=== PATIENT | male | born 1980 | race Caucasian/White ===

== ENCOUNTER 2020-09-06 18:26 | Emergency (ER) | payer SELFPAY ==
[2020-09-06] MEDS ORDERED: Sodium Chloride 0.9% 1,000 ML ONE (18:51)
[2020-09-06 19:13] LABS: #Basophils 0.1 thou/uL (0.0-0.2); #Eosinphils 0.1 thou/uL (0.0-0.7); #Lymphocytes 1.4 thou/uL (1.20-3.40); #Monocytes 0.7 thou/uL (0.11-0.59); #Neutrophils 4.2 thou/uL (1.40-6.50); %Basophils 1.3 % (0.0-1.0); %Monocytes 10.9 % (0.0-10.0); %Neutrophils 63.8 % (42.0-75.0); Hemoglobin 16.2 g/dL (14.0-18.0); Mean Corpuscular HGB CONC 31.3 g/dL (32.0-36.0); Mean Corpuscular Hemoglobin 28.9 pg (27.0-31.0); Mean Corpuscular Volume 92.3 fL (78.0-98.0); Mean Platelet Volume 7.3 fL (7.4-10.4); Platelet Count 337 thou/uL (130-400); RBC Distribution Width 12.1 % (11.5-14.5); Red Blood Cell (RBC) Count 5.62 mill/uL (4.70-6.10); White Blood Cell (WBC) Count 6.5 thou/uL (4.8-10.8)
[2020-09-06 19:32] LABS: Anion Gap 13 mmol/L (10-20); BUN (Urea Nitrogen) 12 mg/dL (8.9-20.6); Calc. Creatinine Clearance 0 mL/min (70-130); Carbon Dioxide 24 mmol/L (22-29); Chloride 104 mmol/L (98-107); Potassium 3.2 mmol/L (3.5-5.1); Sodium 138 mmol/L (136-145)
[2020-09-06 19:33] LABS: ALT (SGPT) 20 U/L (8-55); AST (SGOT) 24 U/L (5-34); Alkaline Phosphatase 58 U/L (40-110); Bilirubin, Total 0.4 mg/dL (0.2-1.2); Calcium 8.4 mg/dL (7.8-10.44); Globulin 2.7 g/dL (2.4-3.5); Glucose 126 mg/dL (70-105); Protein, Total 6.7 g/dL (6.0-8.3)
[2020-09-06] MEDS ORDERED: Potassium Chloride 20 MEQ TAB ONE (20:09)
== END 2020-09-06 20:44 | disposition home or self-care (01) ==
LOC: MADERS 18:26
DX: K92.1 Melena (principal); E87.6 Hypokalemia; F17.210 Nicotine dependence, cigarettes, uncomplicated
CPT/HCPCS: 80053; 85025; 99284; J7050

== ENCOUNTER 2020-10-10 13:00 | Emergency (ER) | payer OTHER, SELFPAY ==
[2020-10-10] MEDS ORDERED: Sulfameth/Trimethoprim DS 800-160mg TAB ONE (15:59)
[2020-10-10] MEDS ORDERED: Boostrix 0.5 ML (Tdap) VIAL ONE (15:59)
== END 2020-10-10 16:33 | disposition home or self-care (01) ==
LOC: MADERS 13:00
DX: S80.212A Abrasion, left knee, initial encounter (principal); S80.211A Abrasion, right knee, initial encounter; L03.116 Cellulitis of left lower limb; F17.210 Nicotine dependence, cigarettes, uncomplicated; V29.9XXA Motorcycle rider (driver) (passenger) injured in unspecified traffic accident, initial encounter
CPT/HCPCS: 90471; 90715

== ENCOUNTER 2021-05-26 10:02 | Emergency (ER) | payer OTHER ==
[2021-05-26] MEDS ORDERED: Ibuprofen 800 MG TAB ONE (11:07)
[2021-05-26] MEDS ORDERED: Acetaminophen 500 MG TAB ONE (11:07)
== END 2021-05-26 11:15 | disposition home or self-care (01) ==
LOC: MADERS 10:02
DX: S93.602A Unspecified sprain of left foot, initial encounter (principal); X50.9XXA Other and unspecified overexertion or strenuous movements or postures, initial encounter; F17.210 Nicotine dependence, cigarettes, uncomplicated

== ENCOUNTER 2021-12-21 21:42 | Emergency (ER) | payer OTHER, SELFPAY ==
[2021-12-21] MEDS ORDERED: Lidocaine 1%/Epinephrine 1:100K 10 ML VIAL ONE (22:29)
[2021-12-22] MEDS ORDERED: Bacitracin 1 PK ONE (00:01)
[2021-12-22] MEDS ORDERED: Doxycycline 100 MG CAP ONE (00:29)
== END 2021-12-22 00:30 | disposition home or self-care (01) ==
LOC: MADERS 21:42
DX: S51.852A Open bite of left forearm, initial encounter (principal); S51.851A Open bite of right forearm, initial encounter; I25.2 Old myocardial infarction; I48.91 Unspecified atrial fibrillation; F17.210 Nicotine dependence, cigarettes, uncomplicated; W54.0XXA Bitten by dog, initial encounter; Z95.0 Presence of cardiac pacemaker

== ENCOUNTER 2022-12-13 23:17 | Emergency (ER) | payer SELFPAY ==
[2022-12-13 23:40] LABS: Band 1 % (5-11); Hematocrit 45.6 % (42.0-52.0); Hemoglobin 15.7 g/dL (14.0-18.0); Lymphocytes 38 % (21-51); MDiff Complete? YES; Mean Corpuscular HGB CONC 34.4 g/dL (32.0-36.0); Mean Corpuscular Hemoglobin 30.7 pg (27.0-31.0); Mean Corpuscular Volume 89.2 fl (78.0-98.0); Mean Platelet Volume 7.2 fL (7.4-10.4); Monocytes 5 % (0-10); Neutrophil 56 % (42-75); Platelet Count 328 10x3/uL (130-400); Red Blood Cell (RBC) Count 5.11 mill/uL (4.70-6.10); White Blood Cell (WBC) Count 6.9 10x3/uL (4.8-10.8)
[2022-12-13 23:46] LABS: ALT (SGPT) 24 U/L (8-55); AST (SGOT) 27 U/L (5-34); Albumin 4.4 g/dL (3.5-5.0); Alkaline Phosphatase 67 U/L (40-110); Anion Gap 23 mmol/L (10-20); BUN (Urea Nitrogen) 12 mg/dL (8.9-20.6); Bilirubin, Total 0.4 mg/dL (0.2-1.2); Calc. Creatinine Clearance 0 mL/min (70-130); Calcium 9.8 mg/dL (7.8-10.44); Carbon Dioxide 21 mmol/L (22-29); Chloride 102 mmol/L (98-107); Estimated GFR 63; Globulin 2.6 g/dL (2.4-3.5); Glucose 108 mg/dL (70-105); Potassium 3.7 mmol/L (3.5-5.1); Sodium 142 mmol/L (136-145)
[2022-12-13 23:47] LABS: Troponin I 0.019 ng/mL (< 0.028)
[2022-12-13] MEDS ORDERED: Nitroglycerin 0.4 MG TAB 1 EACH ONE (23:48)
[2022-12-13] MEDS ORDERED: Aspirin Chewable 81 MG TAB ONE (23:48)
[2022-12-14 00:10] LABS: Acetaminophen Less than 10 mcg/mL (10.0-30.0); Alcohol 71.2 mg/dL (Less than 10); Salicylate Less than 8.0 mg/dL (15.0-30.0)
[2022-12-14] MEDS ORDERED: Thiamine HCl 200 MG/2 ML VIAL ONE (00:12)
[2022-12-14] MEDS ORDERED: Lactated Ringer's 1,000 ML ONE ×2 (00:12→02:31)
[2022-12-14 02:39] LABS: Troponin I Less than 0.010 ng/mL (< 0.028)
[2022-12-14 05:30] LABS: Amphetamine Detected (NotDetected); Barbiturates Screen Not Detected (NotDetected); Benzodiazepine Screen Not Detected (NotDetected); Cocaine Metabolite Screen Not Detected (NotDetected); Methadone Not Detected (NotDetected); Methamphetamine Detected (NotDetected); Opiate Screen Not Detected (NotDetected); Oxycodone Screen Not Detected (NotDetected); Phencyclidine (PCP) Not Detected (NotDetected); THC/Cannabinoid Screen Not Detected (NotDetected); Tricyclic Screen Not Detected (NotDetected)
[2022-12-14 05:40] LABS: Troponin I 0.016 ng/mL (< 0.028)
[2022-12-14] MEDS ORDERED: Aspirin Chewable 81 MG TAB ONE (10:55)
== END 2022-12-14 11:40 | disposition short-term general hospital (02) ==
LOC: MADERS 23:17
DX: R07.9 Chest pain, unspecified (principal); N17.9 Acute kidney failure, unspecified; R55 Syncope and collapse; F17.210 Nicotine dependence, cigarettes, uncomplicated
CPT/HCPCS: 71045; 80053; 80306; 80307; 83690; 83880; 84484; 85025; 85379; 93005; 94760; 96361; 96374; J3411; J7120

== ENCOUNTER 2024-04-12 08:53 | Emergency (ER) | payer OTHER, SELFPAY ==
[2024-04-12 09:26] LABS: #Basophils 0.1 thou/uL (0.0-0.2); #Eosinophils 0.2 thou/uL (0.0-0.7); #Lymphocytes 1.8 thou/uL (1.20-3.40); #Monocytes 0.5 thou/uL (0.11-0.59); #Neutrophils 3.9 thou/uL (1.40-6.50); %Basophils 1.5 % (0.0-1.0); %Eosinophils 2.7 % (0.0-10.0); %Lymphocytes 27.6 % (21.0-51.0); %Monocytes 7.7 % (0.0-10.0); %Neutrophils 60.6 % (42.0-75.0); Hematocrit 41.4 % (42.0-52.0); Hemoglobin 13.8 g/dL (14.0-18.0); Mean Corpuscular HGB CONC 33.3 g/dL (32.0-36.0); Mean Corpuscular Hemoglobin 29.9 pg (27.0-31.0); Mean Corpuscular Volume 89.7 fl (78.0-98.0); Mean Platelet Volume 6.4 fL (7.4-10.4); Platelet Count 294 10x3/uL (130-400); RBC Distribution Width 11.9 % (11.5-14.5); Red Blood Cell (RBC) Count 4.62 mill/uL (4.70-6.10); White Blood Cell (WBC) Count 6.4 10x3/uL (4.8-10.8)
[2024-04-12 09:40] LABS: ALT (SGPT) 18 U/L (8-55); AST (SGOT) 20 U/L (5-34); Albumin 3.7 g/dL (3.5-5.0); Alkaline Phosphatase 53 U/L (40-110); Anion Gap 13 mmol/L (10-20); BUN (Urea Nitrogen) 12 mg/dL (8.9-20.6); Bilirubin, Total 0.4 mg/dL (0.2-1.2); Calc. Creatinine Clearance 0 mL/min (70-130); Calcium 8.7 mg/dL (7.8-10.44); Carbon Dioxide 21 mmol/L (22-29); Chloride 108 mmol/L (98-107); Estimated GFR 110; Globulin 2.4 g/dL (2.4-3.5); Glucose 90 mg/dL (70-105); Lipase 56 U/L (8-78); Potassium 3.8 mmol/L (3.5-5.1); Protein, Total 6.1 g/dL (6.0-8.3); Sodium 138 mmol/L (136-145); Troponin I Less than 0.010 ng/mL (< 0.028)
[2024-04-12 09:41] LABS: Acetaminophen Less than 10 mcg/mL (Less than 10); Alcohol Less than 10.0 mg/dL (Less than 10); Salicylate Less than 8.0 mg/dL (Less than 8.0)
[2024-04-12 12:30] LABS: Troponin I Less than 0.010 ng/mL (< 0.028)
[2024-04-12 12:31] LABS: Bilirubin Negative (Negative); Blood, Urine Negative (Negative); Clarity Clear (Clear); Glucose, Urine (Dipstick) Negative (Negative); Ketone, Urine Negative (Negative); Leukocyte Negative (Negative); Nitrite Negative (Negative); Protein, Urine (Dipstick) Negative (Neg-Trace); Specific Gravity, Urine 1.015 (1.005-1.030); Urobilinogen 0.2 mg/dL (Less than 2)
[2024-04-12 12:37] LABS: CAUTI Indications for Culture Dysuria,urgency,freq; RBC/HPF 0-3 HPF (0-3); Squamous Epithelial 0-3 HPF (0-3); WBC/HPF 0-3 HPF (0-3)
[2024-04-12 12:38] LABS: Amphetamine Detected (NotDetected); Bacteria/HPF Rare-Few HPF (None Seen); Barbiturates Screen Not Detected (NotDetected); Benzodiazepine Screen Not Detected (NotDetected); Cocaine Metabolite Screen Not Detected (NotDetected); Methadone Not Detected (NotDetected); Methamphetamine Detected (NotDetected); Mucous/LPF Few LPF (<2+); Opiate Screen Not Detected (NotDetected); Oxycodone Screen Not Detected (NotDetected); Phencyclidine (PCP) Not Detected (NotDetected); THC/Cannabinoid Screen Detected (NotDetected); Tricyclic Screen Not Detected (NotDetected); Urine Culture Reflex No No
== END 2024-04-12 15:03 | disposition short-term general hospital (02) ==
LOC: MADERS 08:53
DX: R07.9 Chest pain, unspecified (principal); R55 Syncope and collapse; F17.210 Nicotine dependence, cigarettes, uncomplicated; Z55.6 Problems related to health literacy; Z95.0 Presence of cardiac pacemaker
CPT/HCPCS: 36415; 71045; 80053; 80306; 80307; 81001; 83690; 84484; 85025; 85379; 93005